=== PATIENT | female | born 1995 | race African-American/Black ===

== ENCOUNTER 2018-01-29 07:23 | Emergency (ER) | payer MEDICAID ==
[2018-01-29 07:40] LABS: URINE HCG POC HCG NEGATIVE (Negative)
[2018-01-29] MEDS ORDERED: IV NORMAL SALINE 1000ML BAG 1,000 ML IV (07:45)
[2018-01-29 07:55] LABS: BILIRUBIN,URINE NEGATIVE (NEG); CLARITY,URINE CLEAR; COLOR,URINE YELLOW; GLUCOSE,URINE NEGATIVE (NEG); NITRITE,URINE NEGATIVE (NEG); PROTEIN,URINE NEGATIVE (NEG-TRACE); UROBILINOGEN,URINE 0.2 mg/dL (0.2 mg/dL)
[2018-01-29 08:12] LABS: BACTERIA,URINE FEW /HPF (0-FEW); RBC,URINE 0 /HPF (0-2); SQUAMOUS EPITHELIAL CELL,UR MOD /LPF
== END 2018-01-29 07:53 | disposition left against medical advice (07) ==
LOC: ER 07:53
DX: R19.7 Diarrhea, unspecified (principal); R11.0 Nausea; R10.9 Unspecified abdominal pain
CPT/HCPCS: 81001; 81025; 99283

== ENCOUNTER 2018-07-28 18:22 | Emergency (ER) | payer SELFPAY ==
[~2018-07-28] VITALS: Ht 157.5 cm; Wt 53.5 kg
[2018-07-28 18:40] VITALS: BP 119/74
[2018-07-28 19:23] LABS: BILIRUBIN,URINE NEGATIVE (NEG); CLARITY,URINE CLOUDY; COLOR,URINE RED; PROTEIN,URINE >=300 mg/dL (NEG-TRACE)
[2018-07-28 19:28] LABS: RBC,URINE >40 /HPF (0-2)
[2018-07-28 19:29] LABS: SQUAMOUS EPITHELIAL CELL,UR MOD /LPF
[2018-07-28 19:32] LABS: BACTERIA,URINE FEW /HPF (0-FEW)
[2018-07-28] MEDS ORDERED: CEPH-264 PO (19:48)
[2018-07-28] MEDS ORDERED: PHEN100T82 PO (19:48)
--- NOTE | 2018-07-28 19:48 | PHYS DOC ---
Past Medical History Past Medical History: No Pertinent History Past Surgical History: No Surgical History Alcohol Use: Occasionally Drug Use: None Adult General Chief Complaint Chief Complaint: BLOOD IN URINE HPI HPI Patient is a 22 year old AA female who presents to the ER with complaints of blood in her urine and burning after urination for the last 2-3 days. She states her LMP started today. She denies any abdominal pain, back pain, nausea, vomiting, diarrhea, or fever. She states that nothing makes the pain better and that it is exacerbated by urination only. Review of Systems Review of Systems Constitutional: Denies fever or chills [] GI: Denies abdominal pain, nausea, vomiting, or diarrhea [] : See HPI Musculoskeletal: Denies back pain or Integument: Denies rash or skin lesions [] Neurologic: Denies headache, focal weakness or sensory changes [] Complete systems were reviewed and found to be within normal limits, except as documented in this note. Allergies Allergies Allergies Coded Allergies Type Severity Reaction Last Updated Verified No Known Drug Allergies 11/01/14 No Physical Exam Physical Exam Constitutional: Well developed, well nourished, no acute distress, non-toxic appearance. [] HENT: Normocephalic, atraumatic, bilateral external ears normal, nose normal. [ ] Eyes: PERRLA, conjunctiva normal, no discharge. [] Neck: Normal range of motion, no tenderness, supple, no stridor. [] Cardiovascular:Heart rate regular rhythm, no murmur [] Lungs & Thorax: Bilateral breath sounds clear to auscultation [] Abdomen: soft, no tenderness, no masses, no pulsatile masses. [] Skin: Warm, dry, no erythema, no rash. [] Back: no CVA tenderness. [] Neurologic: Alert and oriented X 3, normal motor function, normal sensory function, no focal deficits noted. [] Psychologic: Affect normal, judgement normal, mood normal. [] Current Patient Data Vital Signs Vital Signs Date Time Temp Pulse Resp B/P (MAP) Pulse Ox O2 Delivery O2 Flow Rate FiO2 07/28/18 18:40 98.0 83 18 119/74 (89) 100 Room Air 98.0 Lab Values Laboratory Tests Test 07/28/18 19:15 07/28/18 19:17 Urine Collection Type Unknown Urine Color Red Urine Clarity Cloudy Urine pH 7.0 Urine Specific [place] >=1.030 Urine Protein >=300 mg/dL (NEG-TRACE) Urine Glucose (UA) Negative mg/dL (NEG) Urine Ketones (Stick) Trace mg/dL (NEG) Urine Blood Large (NEG) Urine Nitrite (NEG) Urine Bilirubin Negative (NEG) Urine Urobilinogen Dipstick 1.0 mg/dL (0.2 mg/dL) Urine Leukocyte Esterase Moderate (NEG) Urine RBC >40 /HPF (0-2) Urine WBC 11-20 /HPF (0-4) Urine Squamous Epithelial Cells Mod /LPF Urine Bacteria Few /HPF (0-FEW) Urine Mucus Mod /LPF POC Urine HCG, Qualitative Hcg negative (Negative) EKG EKG [] Radiology/Procedures Radiology/Procedures [] Course & Med Decision Making Course & Med Decision Making Pertinent Labs and Imaging studies reviewed. (See chart for details) Dx: UTI prescriptions for Keflex and pyridium written. Increase clear fluids. Avoid bladder irritants. Follow up with your doctor next week, return to the ER if symptoms worsen. [] Dragon Disclaimer Dragon Disclaimer This electronic medical record was generated, in whole or in part, using a voice recognition dictation system. Departure Departure Impression: Primary Impression: UTI (urinary tract infection) Disposition: 01 HOME, SELF-CARE Condition: STABLE Referrals: NO PCP (PCP) Patient Instructions: Urinary Tract Infection, [id number] Additional Instructions: Fill prescription(s) and use as directed. Avoid bladder irritants such as caffeine, carbonation, and spicy foods. Increase clear fluids. Follow up with your primary care doctor if symptoms persist, return to the ER if symptoms worsen. Scripts Phenazopyridine Hcl (PYRIDIUM) 100 Mg Tablet 100 MG PO TID PRN for BLADDER SPASM for 4 Days, #12 TAB 0 Refills Prov: HAWA CORREIA FOUNDATION ENGINEER 07/28/18 Cephalexin (KEFLEX) 500 Mg Capsule 1 CAP PO BID, #14 CAP 0 Refills Prov: HAWA CORREIA FOUNDATION ENGINEER 07/28/18 Attending Signature Attending Signature I have reviewed the PA/ELECTRONICS ENGINEERING MANAGER's note and plan of care. I was available for consultation as needed during the patient's visit in the emergency department. I agree with the clinical impression, plan, and disposition. Problem Qualifiers Primary Impression: UTI (urinary tract infection) Urinary tract infection type: site unspecified Hematuria presence: with hematuria Qualified Codes: N39.0 - Urinary tract infection, site not specified ; R31.9 - Hematuria, unspecified HAWA CORREIA APRN Jul 28, 2018 19:48 CORINA ANDREA DO Jul 28, 2018 20:50
== END 2018-07-28 20:02 | disposition home or self-care (01) ==
LOC: ER 18:22
DX: N39.0 Urinary tract infection, site not specified (principal)
CPT/HCPCS: 81001; 81025; 87086; 99283

== ENCOUNTER 2020-04-23 14:03 | Emergency (ER) | payer SELFPAY ==
[~2020-04-23] VITALS: Ht 160 cm; Wt 53.6 kg
[~2020-04-23 14:03] MED LIST: CEPH-264 PO; PHEN100T82 PO
[2020-04-23 14:22] VITALS: BP 115/76
[2020-04-23 14:42] LABS: BILIRUBIN,URINE NEGATIVE (NEG); CLARITY,URINE CLEAR; COLOR,URINE YELLOW; NITRITE,URINE NEGATIVE (NEG); PROTEIN,URINE NEGATIVE (NEG-TRACE); UROBILINOGEN,URINE 0.2 mg/dL (0.2 mg/dL)
[2020-04-23 15:00] LABS: BACTERIA,URINE FEW /HPF (0-FEW); RBC,URINE 0 /HPF (0-2); SQUAMOUS EPITHELIAL CELL,UR FEW /LPF; WBC,URINE 20-40 /HPF (0-4)
[2020-04-23] MEDS ORDERED: AZITHROMYCIN 250 MG TABLET. PO ONE (15:00)
[2020-04-23] MEDS ORDERED: cefTRIAXone IM 250 MG VIAL IM ONE (15:00)
[2020-04-23] MEDS ORDERED: METR500T PO (16:04)
--- NOTE | 2020-04-23 16:05 | PHYS DOC ---
Past Medical History Past Medical History: No Pertinent History Past Surgical History: No Surgical History Smoking Status: Never Smoker Alcohol Use: Occasionally Drug Use: None General Adult EDM: Chief Complaint: VAGINAL PROBLEM HPI: HPI: Patient is a 24 year old AA female who presents to the emergency department with complaints of vaginal itching and thick white vaginal discharge for the last week. She reports trying to treat herself at home with [id number] Monistat but reports no improvement after that treatment. She denies any abdominal pain, pelvic pain, back pain, fever, nausea, vomiting, diarrhea, body aches, fatigue, hematuria, or increased urinary frequency. She reports that there is burning with her urination. She currently denies any pain. Review of Systems: Review of Systems: Constitutional: Denies fever or chills. [] HENT: Denies nasal congestion or sore throat. [] Respiratory: Denies cough or shortness of breath. [] Cardiovascular: Denies chest pain or edema. [] GI: Denies abdominal pain, nausea, vomiting, or diarrhea. [] : See HPI Musculoskeletal: Denies back pain or joint pain. [] Integument: Denies rash. [] Neurologic: Denies headache Psychiatric: Denies depression or anxiety. [] Heart Score: Risk Factors: Risk Factors: DM, Current or recent (<one month) smoker, HTN, HLP, family history of CAD, obesity. Risk Scores: Score 0 - 3: 2.5% MACE over next 6 weeks - Discharge Home Score 4 - 6: 20.3% MACE over next 6 weeks - Admit for Clinical Observation Score 7 - 10: 72.7% MACE over next 6 weeks - Early Invasive Strategies Current Medications: Current Medications Medications (Trade) Dose Ordered Sig/[facility] Start Time Stop Time Status Last Admin Dose Admin Azithromycin (Zithromax) 1,000 mg 1X ONCE 04/23/20 15:00 04/23/20 15:01 DC 04/23/20 15:05 1,000 MG Ceftriaxone Sodium (Rocephin Im) 250 mg 1X ONCE 04/23/20 15:00 04/23/20 15:01 DC 04/23/20 15:06 250 MG Allergies: Allergies: Allergies Coded Allergies Type Severity Reaction Last Updated Verified No Known Drug Allergies 11/01/14 No Physical Exam: PE: Constitutional: Well developed, well nourished, no acute distress, non-toxic appearance. HENT: Normocephalic, atraumatic, bilateral external ears normal, nose normal. Eyes: PERRLA, EOMI, conjunctiva normal, no discharge. Neck: Normal range of motion, no stridor. Cardiovascular: Heart rate regular rhythm Lungs & Thorax: Respirations even and unlabored, no retractions, no respiratory distress Pelvic Exam: Tape Recording Machine Operator present Mary Anne RN Abdomen: Nontender, soft External Genitalia: Normal Skin Speculum: Normal vaginal mucosa, purulent cervical discharge Bimanual: No adnexal masses or tenderness, No CMT Skin: Warm, dry, no erythema, no rash. Extremities: No cyanosis, ROM intact, no edema. Neurologic: Alert and oriented X 3, no focal deficits noted. Psychologic: Affect normal, judgement normal, mood normal. Current Patient Data: Labs: Laboratory Tests Test 04/23/20 14:05 04/23/20 14:25 Urine Collection Type Unknown Urine Color Yellow Urine Clarity Clear Urine pH 7.0 (<5.0-8.0) Urine Specific [place] 1.015 (1.000-1.030) Urine Protein Negative mg/dL (NEG-TRACE) Urine Glucose (UA) Negative mg/dL (NEG) Urine Ketones (Stick) Negative mg/dL (NEG) Urine Blood Negative (NEG) Urine Nitrite Negative (NEG) Urine Bilirubin Negative (NEG) Urine Urobilinogen Dipstick 0.2 mg/dL (0.2 mg/dL) Urine Leukocyte Esterase Moderate (NEG) Urine RBC 0 /HPF (0-2) Urine WBC 20-40 /HPF (0-4) Urine Squamous Epithelial Cells Few /LPF Urine Bacteria Few /HPF (0-FEW) Urine Mucus Slight /LPF POC Urine HCG, Qualitative Hcg negative (Negative) Microbiology 04/23/20 Wet Prep - Final, Complete Vital Signs: Vital Signs Date Time Temp Pulse Resp B/P (MAP) Pulse Ox O2 Delivery O2 Flow Rate FiO2 04/23/20 14:22 98.1 96 18 115/76 (89) 98 Room Air 98.1 EKG: EKG: [] Radiology/Procedures: Radiology/Procedures: [] Course & Med Decision Making: Course & Med Decision Making Pertinent Labs and Imaging studies reviewed. (See chart for details) Patient was treated prophylactically with 250 mg of IM Rocephin, and 1 g of PO Zithromax. Patient was instructed to avoid having intercourse until the results of gonorrhea and chlamydia testing are available, patient was notified that these results would not be available for 48 hours. If one or both of these tests is positive, patient needs to refrain from intercourse for approximately 1 week following the treatment of any current partners. Wet mount was positive for trichomonas. Prescription written for Flagyl. Patient verbalized an understanding of home care, medications, follow-up, and return to ED instructions and was in agreement with the plan of care. [] Dragon Disclaimer: Dragon Disclaimer: This electronic medical record was generated, in whole or in part, using a voice recognition dictation system. Departure Departure Impression: Primary Impression: Trichomonas infection Additional Impression: Contact with and (suspected) exposure to infections with a predominantly sexual mode of transmission Disposition: 01 HOME, SELF-CARE Condition: STABLE Referrals: NO PCP (PCP) Patient Instructions: Sexually Transmitted Disease, [id number], Trichomoniasis-Brief Additional Instructions: Fill the prescription and use as directed. Recommend that you go to your local health department for comprehensive sexually transmitted disease testing. You have been treated for a suspected gonorrhea and chlamydia. Avoid having intercourse until the results of gonorrhea and chlamydia testing are available, these results will not be available for 48 hours. If one or both of these tests is positive, you need to refrain from intercourse for approximately 1 week following the treatment of any current partners. Follow-up with your primary care doctor if symptoms persist, return to ER symptoms worsen. Scripts Metronidazole (FLAGYL) 500 Mg Tablet 1 TAB PO BID, #14 TAB 0 Refills Prov: HAWA CORREIA APRN 04/23/20 Justicifation of Admission Dx: Justifications for Admission: Justification of Admission Dx: N/A HAWA CORREIA APRN Apr 23, 2020 16:05
[2020-04-24 21:08] LABS: GC PROBE Negative (Negative)
== END 2020-04-23 16:13 | disposition home or self-care (01) ==
LOC: ER 14:03
DX: A59.01 Trichomonal vulvovaginitis (principal); L29.9 Pruritus, unspecified; Z20.2 Contact with and (suspected) exposure to infections with a predominantly sexual mode of transmission
CPT/HCPCS: 81001; 81025; 87086; 87491; 87591; 96372; 99284; J0696; Q0111; 87077

== ENCOUNTER 2021-03-22 20:42 | Emergency (ER) | payer SELFPAY ==
[~2021-03-22] VITALS: Ht 160 cm; Wt 56.0 kg
[~2021-03-22 20:42] MED LIST changes: +METR500T PO
[2021-03-22 21:04] VITALS: BP 116/87
[2021-03-22] MEDS ORDERED: cefTRIAXone IM 500 MG VIAL. IM ONE (23:00)
[2021-03-22 23:06] LABS: BILIRUBIN,URINE NEGATIVE (NEG); CLARITY,URINE CLEAR; COLOR,URINE YELLOW; NITRITE,URINE NEGATIVE (NEG); PH,URINE 7.5 (<5.0-8.0); PROTEIN,URINE NEGATIVE (NEG-TRACE); UROBILINOGEN,URINE 0.2 mg/dL (0.2 mg/dL)
[2021-03-22 23:07] LABS: BACTERIA,URINE 0 /HPF (0-FEW); RBC,URINE 0 /HPF (0-2); WBC,URINE RARE /HPF (0-4)
--- NOTE | 2021-03-22 23:52 | PHYS DOC ---
Past Medical History Past Medical History: No Pertinent History Past Surgical History: No Surgical History Smoking Status: Never Smoker Alcohol Use: None Drug Use: None General Adult EDM: Chief Complaint: VAGINAL PROBLEM HPI: HPI: Patient is a 25 year old female presenting with vaginal discharge. Patient said she started noticing some symptoms similar to a yeast infection and used OTC Monistat on 03/09/21. She did not notice an improvement of symptoms. She complains of vaginal itchiness and burning on urination. She also noticed yellowish discharge. She says the vaginal area feels irritated and mildly swollen. She denies fever or chills. Her LMP was 03/03/21. She is currently not on contraceptives. Review of Systems: Review of Systems: Constitutional: Denies fever or chills Eyes: Denies redness or eye pain HENT: Denies nasal congestion or sore throat Respiratory: Denies cough or shortness of breath Cardiovascular: Denies chest pain or palpitations GI: Denies abdominal pain, nausea, or vomiting : Reports dysuria, vaginal itchiness and yellow discharge. Musculoskeletal: Denies back pain or joint pain Integument: Denies rash or skin lesions Neurologic: Denies headache, focal weakness or sensory changes Complete systems were reviewed and found to be within normal limits, except as documented in this note. Heart Score: C/O Chest Pain: N/A Current Medications: Current Medications Medications (Trade) Dose Ordered Sig/[facility] Start Time Stop Time Status Last Admin Dose Admin Ceftriaxone Sodium (Rocephin Im) 500 mg 1X ONCE 03/22/21 23:00 03/22/21 23:01 DC Allergies: Allergies: Allergies Coded Allergies Type Severity Reaction Last Updated Verified No Known Drug Allergies 11/01/14 No Physical Exam: PE: Constitutional: Well developed, well nourished, no acute distress, non-toxic appearance HENT: Normocephalic, atraumatic Eyes: EOMI, conjunctiva normal, no discharge Neck: Normal range of motion, no tenderness, supple Lungs & Thorax: No respiratory distress, equal chest rise and fall Abdomen: Soft, no tenderness Skin: Warm, dry, no erythema, no rash Back: No tenderness, no CVA tenderness Extremities: No tenderness, ROM intact, no edema Neurologic: Alert and oriented X 3, normal motor function, normal sensory functi on, no focal deficits noted Psychologic: Affect normal, judgment normal Current Patient Data: Labs: Laboratory Tests Test 03/22/21 21:15 03/22/21 21:19 Urine Collection Type Unknown Urine Color Yellow Urine Clarity Clear Urine pH 7.5 (<5.0-8.0) Urine Specific [place] 1.025 (1.000-1.030) Urine Protein Negative mg/dL (NEG-TRACE) Urine Glucose (UA) Negative mg/dL (NEG) Urine Ketones (Stick) Negative mg/dL (NEG) Urine Blood Negative (NEG) Urine Nitrite Negative (NEG) Urine Bilirubin Negative (NEG) Urine Urobilinogen Dipstick 0.2 mg/dL (0.2 mg/dL) Urine Leukocyte Esterase Negative (NEG) Urine RBC 0 /HPF (0-2) Urine WBC Rare /HPF (0-4) Urine Squamous Epithelial Cells Few /LPF Urine Transitional Epithelial Cells /LPF Urine Bacteria 0 /HPF (0-FEW) Urine Mucus Slight /LPF POC Urine HCG, Qualitative Hcg negative (Negative) Vital Signs: Vital Signs Date Time Temp Pulse Resp B/P (MAP) Pulse Ox O2 Delivery O2 Flow Rate FiO2 03/22/21 21:04 98.4 76 16 116/87 100 Room Air 98.4 EKG: EKG: [] Radiology/Procedures: Radiology/Procedures: [] Course & Med Decision Making: Course & Med Decision Making Patient is a 25 year old female presenting with vaginal irritation and discharge. Patient first thought she has a yeas infection and used OTC Monistat on 03/09/21. She did not notice an improvement. She reports burning with urination, itchiness and irritation in the vaginal area. She also noted yellow vaginal discharge. She denies nausea, vomiting, fever. Patient's symptoms are consistent with a possible STI. Urine test negative. 500 mg IM Ceftriaxone given in ED Dragon Disclaimer: Dragon Disclaimer: This electronic medical record was generated, in whole or in part, using a voice recognition dictation system. Departure Departure Impression: Primary Impression: Concern about STD in female without diagnosis Additional Impression: Bacterial vaginosis Disposition: HOME / SELF CARE / HOMELESS Condition: STABLE Referrals: NO PCP (PCP) Patient Instructions: Bacterial Vaginosis, [id number], Sexually Transmitted Disease, [id number] Scripts Doxycycline Hyclate (DOXYCYCLINE HYCLATE) 100 Mg Tablet. 1 TAB PO BID, #14 TAB Prov: CORINA ANDREA DO 03/23/21 Metronidazole (FLAGYL) 500 Mg Tablet 500 MG PO BID PRN for Vaginitis for 7 Days, #14 TAB Prov: CORINA ANDREA DO 03/23/21 CORINA ANDREA DO Mar 22, 2021 23:52
[2021-03-23] MEDS ORDERED: DOXY-96 PO (00:51)
[2021-03-23] MEDS ORDERED: METR500T PO (00:51)
== END 2021-03-23 01:03 | disposition home or self-care (01) ==
LOC: ER 20:42
DX: N76.0 Acute vaginitis (principal); B96.89 Other specified bacterial agents as the cause of diseases classified elsewhere; Z20.2 Contact with and (suspected) exposure to infections with a predominantly sexual mode of transmission
CPT/HCPCS: 81001; 81025; 87491; 87591; 96372; 99283; J0696; Q0111

== ENCOUNTER 2021-04-07 01:43 | Emergency (ER) | payer SELFPAY ==
[~2021-04-07] VITALS: Ht 160 cm; Wt 56.0 kg
[~2021-04-07 01:43] MED LIST changes: +DOXY-96 PO
[2021-04-07 03:35] VITALS: BP 123/81
[2021-04-07 03:41] LABS: BILIRUBIN,URINE NEGATIVE (NEG); CLARITY,URINE CLOUDY; COLOR,URINE YELLOW; NITRITE,URINE NEGATIVE (NEG); PROTEIN,URINE 30 mg/dL (NEG-TRACE); UROBILINOGEN,URINE 0.2 mg/dL (0.2 mg/dL)
[2021-04-07 04:05] LABS: BACTERIA,URINE FEW /HPF (0-FEW); RBC,URINE OCC /HPF (0-2); WBC,URINE TNTC /HPF (0-4)
--- NOTE | 2021-04-07 04:42 | PHYS DOC ---
Past Medical History Past Medical History: No Pertinent History Past Surgical History: No Surgical History Smoking Status: Never Smoker Alcohol Use: Occasionally Drug Use: None General Adult EDM: Chief Complaint: VAGINAL PROBLEM Problems: (1) Vaginal discharge HPI: HPI: 25-year-old female with a history of trichomonas presents to the emergency department complaining of vaginal discharge for the last several weeks. She was in the ER recently and was treated for STIs with ceftriaxone and doxycycline, although she does not know the results of this culture. She states that her vaginal discharge has continued. She also reports that she treated herself for a yeast infection with Monistat. After the Monistat treatment, she noticed that her vulva was more red and swollen. Her smelly yellow vaginal discharge has continued. She denies any vaginal bleeding. She has not had sexual intercourse since her last ER encounter. She denies any abdominal pain, fever, chills, cough, shortness of breath, urinary symptoms or any further complaints Review of Systems: Review of Systems: Review of systems is otherwise unremarkable except for what was mentioned in the HPI Heart Score: C/O Chest Pain: N/A Current Medications: My Orders - YOLANDA RAMIREZ DO Procedure Category Date Status Time Wet Prep JOVANNY 04/07/21 Complete 03:32 Ua, Cult If Indicated LAB 04/07/21 Complete 03:32 Urine Test SUDEEP 04/07/21 In Process 03:32 Chlam Gc Pcr Swab LAB 04/07/21 In Process 03:32 Pelvic Exam SUDEEP 04/07/21 In Process 03:32 Urine Culture JOVANNY 04/07/21 In Process 04:06 Allergies: Allergies: Allergies Coded Allergies Type Severity Reaction Last Updated Verified No Known Drug Allergies 11/01/14 No Physical Exam: PE: Constitutional: No acute distress, non-toxic appearance. HENT: Atraumatic, bilateral external ears normal, nose normal. Eyes: PERRLA, EOMI, conjunctiva normal, no discharge. Neck: Normal range of motion, supple, no stridor. Cardiovascular: Heart rate regular rhythm. 2+ radial pulses Lungs & Thorax: No respiratory distress, symmetrical expansion. Bilateral breath sounds clear to auscultation Abdomen: Soft, no tenderness Genitourinary: External: Normal external genitalia, no lesions. Speculum: Normal vaginal wall mucosa without lacerations or bleeding. Os closed. Thick white vaginal discharge. No active bleeding. Cultures and wet mount obtained. Female inventory accountant was present for entire exam: Diamante Warner Skin: Warm, dry. Extremities: No tenderness, no cyanosis, ROM intact, no edema. Neurologic: Alert and oriented X 3, normal motor function, normal sensory function, no focal deficits noted. Non ataxic gait. GCS 15. Psychologic: Affect normal, judgment normal, mood normal. Current Patient Data: Labs: Laboratory Tests Test 04/07/21 03:20 04/07/21 03:33 Urine Collection Type Unknown Urine Color Yellow Urine Clarity Cloudy Urine pH 6.0 (<5.0-8.0) Urine Specific [place] 1.025 (1.000-1.030) Urine Protein 30 mg/dL (NEG-TRACE) Urine Glucose (UA) Negative mg/dL (NEG) Urine Ketones (Stick) Negative mg/dL (NEG) Urine Blood Small (NEG) Urine Nitrite Negative (NEG) Urine Bilirubin Negative (NEG) Urine Urobilinogen Dipstick 0.2 mg/dL (0.2 mg/dL) Urine Leukocyte Esterase Large (NEG) Urine RBC Occ /HPF (0-2) Urine WBC Tntc /HPF (0-4) Urine Squamous Epithelial Cells Mod /LPF Urine Bacteria Few /HPF (0-FEW) Urine Mucus Marked /LPF Bedside Urine HCG, Qualitative Hcg negative (Negative) Microbiology 04/07/21 Wet Prep - Final, Complete Vital Signs: Vital Signs Date Time Temp Pulse Resp B/P (MAP) Pulse Ox O2 Delivery O2 Flow Rate FiO2 04/07/21 03:35 98.0 62 16 123/81 (89) 100 Room Air 98.0 Course & Med Decision Making: Course & Med Decision Making Wet prep negative, GC and Chlamydia were obtained. Patient was negative last encounter. Patient was discharged in stable condition, clinically, the patient has discharge that appears to look like yeast even though prep negative, will treat with one dose of diflucan Departure Departure Impression: Primary Impression: Vaginal discharge Disposition: 01 HOME / SELF CARE / HOMELESS Condition: GOOD Referrals: NO PCP (PCP) Patient Instructions: Candidal Vulvovaginitis, [id number] Additional Instructions: You were seen in the emergency department and your health condition was deemed not to require admission to the hospital. It is important to realize that we can only evaluate you during the time that you are in her department. Occasionally health conditions can worsen upon leaving the emergency department. If this were to happen, please return to and allow us the opportunity to reevaluate you. It is a pleasure to take care of your health needs. Return to the ER if your symptoms worsen, do not improve, or if you develop additional symptoms that are concerning to you YOLANDA RAMIREZ DO Apr 07, 2021 04:42
[2021-04-07] MEDS ORDERED: FLUCONAZOLE 100 MG TABLET. PO ONE (05:30)
[2021-04-10 22:11] LABS: GC PROBE Negative (Negative)
== END 2021-04-07 05:49 | disposition home or self-care (01) ==
LOC: ER 01:43
DX: N89.8 Other specified noninflammatory disorders of vagina (principal)
CPT/HCPCS: 81001; 81025; 87077; 87086; 87186; 87491; 87591; 99284; Q0111